=== PATIENT | female | born 1965 | race Caucasian/White ===

== ENCOUNTER 2020-02-15 20:01 | Inpatient (IN) | payer BC, SELFPAY ==
[2020-02-15 20:12] VITALS: BP 120/82; PULSE 86; RESP 17; TEMP 36.3; O2SAT 97; BMI 22.1
[2020-02-15 20:41] LABS: Basophils # 0.1 10^3/uL (0.0-0.1); Basophils % 0.4 %; Eosinophils # 0.2 10^3/uL (0.0-0.8); Eosinophils % 1.8 %; Hematocrit 44.3 % (37.0-47.0); Lymphocytes # 3.2 10^3/uL (0.8-4.8); Lymphocytes % 27.7 %; Mean Corpuscular HGB Conc 33.9 g/dL (30.0-36.0); Mean Corpuscular Hemoglobin 30.2 pg (28.0-34.0); Mean Corpuscular Volume 89.3 fL (81-99); Mean Platelet Volume 9.9 fL (7.4-10.4); Monocytes # 0.7 10^3/uL (0.2-0.9); Neutrophils # 7.3 10^3/uL (1.8-7.7); Neutrophils % 63.9 %; Nucleated Red Blood Cells % 0 %; Platelet Count 269 10^3/cmm (130-400); Red Blood Count 4.96 10^6/uL (4.1-5.3); Red Cell Distribution Width 12.2 % (12.1-15.1); White Blood Count 11.4 10^3/uL (4.0-10.0)
[2020-02-15 20:54] LABS: Alanine Aminotransferase 19 U/L (0-33); Albumin Level 4.8 g/dL (3.5-5.2); Alkaline Phosphatase 83 IU/L (35-105); Aspartate Amino Transferase 17 U/L (0-32); Blood Urea Nitrogen 23 mg/dL (6-20); Carbon Dioxide 25 mmol/L (22-29); Chloride 98 mmol/L (98-107); Globulin 3.2 g/dL (1.3-4.6); Glucose 148 mg/dL (65-115); Osmolality Calculated 283 mOsm/kg (285-295); Sodium 137 mmol/L (136-145); Total Bilirubin 0.5 mg/dL (0.15-1.2)
[2020-02-15 21:38] VITALS: BP 117/64; PULSE 77; TEMP 36.7; O2SAT 96
--- NOTE | 2020-02-15 21:46 | W.ED.ABDPA2 ---
HPI - Abdominal Pain General: Chief Complaint: Abdominal Pain Stated Complaint: abd pain Time Seen by Provider: 02/15/20 21:36 Source: patient Mode of arrival: ambulatory Limitations: no limitations History of Present Illness: HPI narrative: Hali is a 54-year-old female states she is abdominal pain today it is epigastric in nature. She had vomiting as well. States pain is very sharp and rates it an 8 out of 10. Denies any worsening or improving factors. MD elicited complaint: abdominal pain Pertinent past history: none Onset (ago): hour(s) Pain Consistency: constant Location: Epigastric Severity: severe Quality: sharp Radiation: none Migration to: no migration Exacerbating factors: nothing Relieving factors: nothing Associated Symptoms: Reports nausea and vomiting; Denies chills, diarrhea, dysuria and fever(s) Review of Systems Const: Denies: fever(s), chills, body aches or change in appetite Eyes: Denies: blurry vision or eye discomfort ENMT: Denies: throat pain or dental pain Card: Denies: chest pain Resp: Denies: dyspnea GI: Reports: abdominal pain, nausea and vomiting; Denies: diarrhea : Denies: dysuria Musc: Denies: neck pain or back pain Skin/Breast: Denies: rash Neuro: Denies: headache(s) Psych: Denies: depression Jules/Lymph: Denies: easy bruising All/Imm: Denies: urticaria PFSH ED PFSH: Medical History (Updated 02/15/20 @ 23:35 by Joyce Song MD) Dyslipidemia Hypertension Nicotine dependence Type 2 diabetes mellitus Surgical History (Updated 02/15/20 @ 23:32 by Joyce Song MD) H/O oophorectomy Family History (Updated 02/15/20 @ 23:32 by Joyce Song MD) Mother Cancer Colon cancer Social History (Updated 02/15/20 @ 23:32 by Joyce Song MD) Smoking and tobacco status: heavy tobacco smoker cigarettes [ Other cigarette details: [id number] smoking ] Alcohol intake: never Substance/Drug Use: never Household members: family Housing: House Physical Exam Const: COMMON NORMALS: no acute distress, patient oriented x3 and healthy appearing HENMT: COMMON NORMALS: normocephalic and atraumatic HEAD & SCALP: normocephalic and atraumatic Eye: COMMON NORMALS: Equal, round and reactive pupils present and EOMs intact bilaterally PUPIL: Yes Equal, round and reactive pupils present Neck/C-Spine: COMMON NORMALS: full ROM and supple Chest: COMMONS NORMALS: normal inspection of the chest and normal palpation of entire chest wall Resp: COMMON NORMALS: normal respiratory effort, No retractions, No use of accessory muscles and clear to auscultation bilaterally AUSCULTATION: clear to auscultation bilaterally Cardio: COMMON NORMALS: regular rate, regular rhythm and No murmurs present (Cardio) RATE: regular rate RHYTHM: regular rhythm GI: COMMON NORMALS: Normal to inspection, nondistended, normoactive bowel sounds present, Soft to palpation, non-tender and no masses PALPATION: Yes Soft to palpation Extremity: COMMON NORMALS: normal to inspection and full ROM Neuro: COMMON NORMALS: patient oriented x3, moves all extremities and no focal motor deficits Psych: COMMON NORMALS: mental status grossly normal, Normal thought process present and cooperative THOUGHT PROCESS: Normal thought process present Skin: COMMON NORMALS: no rashes or lesions noted and no wounds GENERAL SKIN EXAM: no rashes or lesions noted Course Vital Signs: Vital signs: Vital Signs Temperature 98.0 F 02/15/20 21:38 Pulse Rate 70 02/15/20 23:00 Respiratory Rate 17 02/15/20 23:00 Blood Pressure 114/70 02/15/20 23:00 Pulse Oximetry 98 02/15/20 23:00 MDM - Abdominal Pain MDM Narrative: Medical decision making narrative: Hali presents here with abdominal pain is found to have pancreatitis. Patient has no signs of gallstones. Patient is stable here and I spoke to hospitalist and will admit. Lab Data: Labs: Lab Results 02/15/20 02/15/20 02/15/20 Range/Units 20:33 20:33 20:33 WBC 11.4 H (4.0-10.0) 10^3/ uL RBC 4.96 (4.1-5.3) 10^6/u L Hgb 15.0 (11.5-15.3) g/dL Hct 44.3 (37.0-47.0) % MCV 89.3 (81-99) fL MCH 30.2 (28.0-34.0) pg MCHC 33.9 (30.0-36.0) g/dL RDW 12.2 (12.1-15.1) % Plt Count 269 (130-400) 10^3/c mm MPV 9.9 (7.4-10.4) fL Neut % (Auto) 63.9 % Lymph % (Auto) 27.7 % Phillips % (Auto) 6.0 % Eos % (Auto) 1.8 % Baso % (Auto) 0.4 % Neut # (Auto) 7.3 (1.8-7.7) 10^3/u L Lymph # (Auto) 3.2 (0.8-4.8) 10^3/u L Phillips # (Auto) 0.7 (0.2-0.9) 10^3/u L Eos # (Auto) 0.2 (0.0-0.8) 10^3/u L Baso # (Auto) 0.1 (0.0-0.1) 10^3/u L Nucleated RBC % (a uto) 0 % Nucleated RBCs # 0.0 /100WBC Sodium 137 (136-145) mmol/L Potassium 4.0 (3.5-5.1) mmol/L Chloride 98 (98-107) mmol/L Carbon Dioxide 25 (22-29) mmol/L Anion Gap 18.0 (5-19) BUN 23 H (6-20) mg/dL Creatinine 1.2 H (0.5-0.9) mg/dL GFR Calculation 47.0 L (90-130) mL/min Glucose 148 H (65-115) mg/dL Calculated Osmolal ity 283 L (285-295) mOsm/k g Calcium 10.0 (8.5-10.5) mg/dL Total Bilirubin 0.5 (0.15-1.2) mg/dL AST 17 (0-32) U/L ALT 19 (0-33) U/L Alkaline Phosphata se 83 (35-105) IU/L Total Protein 8.0 (6.6-8.7) g/dL Albumin 4.8 (3.5-5.2) g/dL Globulin 3.2 (1.3-4.6) g/dL Triglycerides 207 H (0-150) mg/dL Lipase 833 H (13-60) U/L Imaging Data ^: CT Abd/Pel: Radiologist's impression: [address] [place] [address] CT Scan Report Signed Patient: Hali Mosley Unit #: [id number] : 1965 Age/Sex: 54 / F ADM Date: 02/15/20 Loc: ER Room/Bed: Attending Dr: Ordering Provider/Ordering MD: Luz Scott MD Date of Service: 02/15/20 Procedure(s): CT abdomen pelvis w con* [id number] Accession Number(s): [id number] Report Number: [id number] PROCEDURE INFORMATION: Exam: CT Abdomen And Pelvis With Contrast Exam date and time: 02/15/2020 9:48 PM Age: 54 years old Clinical indication: Abdominal pain; Prior surgery; Surgery type: Ovary, fallopian tube TECHNIQUE: Imaging protocol: Computed tomography of the abdomen and pelvis with intravenous contrast. Radiation optimization: All CT scans at this facility use at least one of these dose optimization techniques: automated exposure control; mA and/or kV adjustment per patient size (includes targeted exams where dose is matched to clinical indication); or iterative reconstruction. Contrast material: VISI 320; Contrast volume: 75 ml; Contrast route: INTRAVENOUS (IV); COMPARISON: No relevant prior studies available. RADIATION DOSE METRICS: Total DLP (mGy-cm): 527.6 FINDINGS: Liver: There is no focal abnormality within the liver. Gallbladder and bile ducts: The gallbladder is normal. Pancreas: The tail of the pancreas is short, is probably a congenital finding. There is some mild haziness in the fat adjacent to the head of the pancreas which could represent mild pancreatitis. Correlation with clinical laboratory findings is suggested. Spleen: The spleen is normal. Adrenals: The adrenal glands are normal. The adrenal glands are normal. Kidneys and ureters: The kidneys are normal. Stomach and bowel: There is no evidence of colitis/diverticulitis. There is some mildly dilated fluid-filled loops of small bowel on the left side of the abdomen which could represent mild ileus. Appendix: A normal appendix is identified. Intraperitoneal space: Unremarkable. No free air. No significant fluid collection. Vasculature: The aorta demonstrates mild atherosclerotic calcification. Lymph nodes: Unremarkable. No enlarged lymph nodes. Bladder: Unremarkable as visualized. Reproductive: Unremarkable as visualized. Bones/joints: Unremarkable. No acute fracture. Soft tissues: Unremarkable. CT/CT abdomen pelvis w con* [id number] IMPRESSION: 1. Suspicious for mild pancreatitis, correlation with laboratory findings is suggested. 2. Possible mild ileus. Discharge Plan Discharge Patient Disposition: Admitted As Inpatient Clinical Impression: Pancreatitis Qualifiers: Chronicity: acute Pancreatitis type: unspecified pancreatitis type Acute pancreatitis complication: unspecified Qualified Code(s): K85.90 - Acute pancreatitis without necrosis or infection, unspecified Condition: Stable Referrals: Misael Guillen DO [Primary Care Provider] - Coding Level of Care Code ED Associate Automation Engineer for g Fwd Exam Comprehensive
[2020-02-15 21:54] LABS: Lipase 833 U/L (13-60)
[2020-02-15 22:11] VITALS: RESP 18; O2SAT 98
[2020-02-15] MEDS: HYDROmorphone 1 mg/mL INJ 1 mL IVP (22:11)
[2020-02-15] MEDS: ondansetron 2 mg/ML SDV 2 mL 4 MG IVP (22:11)
[2020-02-15] MEDS: sodium chloride 0.9% 1,000 ML 999 ML IV (22:14)
[2020-02-15] MEDS: iodixanol 320 mg/mL 100mL Btl IV (22:48)
[2020-02-15 22:56] VITALS: BP 114/57; PULSE 71; RESP 18; O2SAT 99
[2020-02-15 23:00] VITALS: BP 114/70; PULSE 70; RESP 17; O2SAT 98
[2020-02-15] MEDS: metoclopramide 5 mg/mL SDV 2 mL 10 MG IVP (23:08)
[2020-02-15] MEDS: diphenhydrAMINE 50 mg/mL SDV 1mL IVP (23:09)
--- NOTE | 2020-02-15 23:29 | PM.HP ---
Providers/Chief Complaint Primary Care Provider: Misael Guillen DO Chief Complaint: abd pain History of Present Illness Hali Mosley is a 54 year old female who carries history of type 2 diabetes and dyslipidemia came in with chief complaint abdominal pain. Patient is stating that her abdominal pain which she describes as burning started about 1 week ago after her dinner, it never subsided, she kept having nauseous feeling but never vomited until today, today she experienced 2 episodes of vomiting and decided to come to the ED for further evaluation. At home she did not notice any fever, chills, dysuria or diarrhea. She never had any episode of pancreatitis in the past. She is compliant with her medications and blood sugar has been within normal range at home. One thing she noticed which is different for her is low blood pressure for last 1 week. She has been able to eat and drink adequately but her blood pressure was running low in low 90s. At home she takes lisinopril 5 mg daily. No recent falls or syncopal events. Review of records revealed that in 2017 she had a stress test which was negative for coronary ischemia. Echo revealed normal ejection fraction. Diagnosis in the ER revealed hypotension systolic ranging between 88 to 90 mmHg, afebrile, mild leukocytosis, she received 1 L normal saline, I requested another bolus, CT abdomen reveals mild pancreatitis with ileus, lipase 833 Triglyceride 207 Creatinine 1.2 Review of Systems Const: Reports: chills, body aches, change in appetite and fatigue; Denies: fever(s) Eyes: Denies: change in vision ENMT: Denies: throat pain Card: Denies: chest pain Resp: Denies: dyspnea GI: Reports: abdominal pain, nausea, vomiting and heartburn; Denies: diarrhea or constipation : Denies: flank pain or difficulty voiding Musc: Denies: neck pain Skin/Breast: Denies: rash or pruritus Neuro: Denies: headache(s) Psych: Denies: anxiety Endo: Denies: polyuria Jules/Lymph: Denies: easy bruising All/Imm: Denies: urticaria Medications/Allergies Home Medications Medication Instructions Recorded Confirmed Last Taken Type Neurontin See Rx Instructions .ROUTE .COMPLEX 02/15/20 02/15/20 Unknown History empagliflozin [Jardiance] 10 mg PO DAILY 02/15/20 02/15/20 02/15/20 History fluoxetine [Prozac] 40 mg PO DAILY 02/15/20 02/15/20 02/15/20 History insulin degludec [Tresiba 25 unit SUBCUT BID 02/15/20 02/15/20 02/15/20 History FlexTouch U-100] lisinopril 5 mg PO DAILY 02/15/20 02/15/20 02/15/20 History semaglutide [Ozempic] 1 mg SUBCUT DAILY 02/15/20 02/15/20 02/15/20 History Allergies Allergy/AdvReac Type Severity Reaction Status Date / Time codeine Allergy Unknown Verified 02/15/20 21:47 Penicillins Allergy ALGY-Swell Verified 02/15/20 21:47 Lip/Tongue/Throat PFSH Acute PFSH: Medical History Dyslipidemia Hypertension Nicotine dependence Type 2 diabetes mellitus Surgical History H/O oophorectomy Family History Mother Cancer Colon cancer Social History Smoking and tobacco status: heavy tobacco smoker cigarettes [ Other cigarette details: 80-[id number]-hlbh smoking ] Alcohol intake: never Substance/Drug Use: never Household members: family Housing: House Vitals/I&O/Wt Last Vital Signs Temp 98.0 F 02/15/20 21:38 Pulse 70 02/15/20 23:00 Resp 17 02/15/20 23:00 BP 114/70 02/15/20 23:00 Pulse Ox 98 02/15/20 23:00 Weight last 48 hrs Weight 54.885 kg Physical Exam Narrative: EXAM NARRATIVE: Head to toe examination Well-built well-hydrated female S1, S2 no tachycardia Abdomen soft, mild tenderness on deep palpation around mid epigastric region otherwise no signs of retroperitoneal hemorrhage Lungs are clear to auscultation without adventitious sounds Systolic blood pressure ranging between 88 to 90 mm artery Awake alert oriented x3 GCS 15 No neurological deficit No facial asymmetry Skin does not show any sign ischemia getting ulcer Skin tattoos Data : 02/15/20 20:33 02/15/20 20:33 A&P Assessment and plan (1) Pancreatitis: Status: Acute Qualifiers: Acute pancreatitis complication: unspecified Chronicity: acute Pancreatitis type: unspecified pancreatitis type Qualified Code(s): K85.90 - Acute pancreatitis without necrosis or infection, unspecified (2) SCOTTY (acute kidney injury): Status: Acute (3) Ileus: Status: Acute (4) Nicotine dependence: Status: Acute Additional A&P Information Subacute episode of pancreatitis I believe etiology is nicotine dependence and GLP-1 analog that she is using for type 2 diabetes No gallstones No CBD dilation Lipase 833 Triglyceride 207 No previous history of pancreatitis N.p.o. Ringer lactate at 75 mL/h after giving second bolus Analgesia with Dilaudid Acute kidney injury due to dehydration Anticipating improvement with fluid resuscitation Patient is denying dysuria Hold lisinopril Type 2 diabetes: We will check A1c level, Hold insulin for now as she will be n.p.o Nicotine dependence: Patient counseled on smoking cessation and benefits for her health. Full code DVT prophylaxis heparin N.p.o. GI prophylaxis Protonix IV Attestations Medical Necessity Statement*: Anticipating stay in the hospital to cross more than 2 midnights currently need bowel rest and IV fluids agitation for pancreatitis and hypotension, also has evidence of ileus on CT abdomen Her clinical progress will decide her length of stay Time Spent in Patient Care: (>than 50% of time spent in counselling and/or direct pt care on unit). 45mins Coding Level of Care Code Acute Sales Property Manager for Neda Wyatt Diagnoses Pancreatitis K85.90 Acute pancreatitis complication: unspecified Chronicity: acute Pancreatitis type: unspecified pancreatitis type SCOTTY (acute kidney injury) N17.9 Ileus K56.7 Nicotine dependence F17.200
[2020-02-15 23:40] LABS: Triglycerides 207 mg/dL (0-150)
[2020-02-16] VITALS (15 sets, daily range): BP systolic 82–126; BP diastolic 46–74; PULSE 58–103; RESP 16–20; TEMP 36.5–37.1; O2SAT 91–99
--- NOTE | 2020-02-16 00:12 | PC.NURSE ---
Daughter Michelle cell # [phone]
[2020-02-16 01:13] LABS: Glucose Urine UA 4+ (Normal); Ketones Urine Negative (Negative); Protein Urine Neg (Negative); Urine Appearance Clear (CLEAR); Urine Color Yellow (Yellow); pH Urine 6 (5-7)
[2020-02-16 01:14] LABS: Add Urine Microscopic? YES; Bacteria Urine TRACE; Bilirubin Urine Neg (NEGATIVE); Blood Urine 2+ (Negative); Leukocyte Esterase Urine Negative (Negative); Nitrate Urine Negative (Negative); RBC Urine 0-4 /hpf (0-2); Squamous Epithelial Cell Urine 0-4 (0-5); Urobilinogen Urine Norm (Negative); WBC Urine 0-4 /hpf (0-5)
[2020-02-16] MEDS: heparin 5,000 unit/mL INJ 1 mL 5000 UNIT SUBCUT ×3 (01:22→17:45)
[2020-02-16] MEDS: sodium chloride 0.9% 1,000 ML 999 ML IV ×2 (01:22→02:40)
[2020-02-16] MEDS: lactated ringers 1,000 ML 75 ML IV ×2 (02:24→13:13)
[2020-02-16] MEDS: midodrine 5 mg TABLET 10 MG PO ×4 (02:39→21:16)
[2020-02-16 05:04] LABS: Basophils % 0.4 %; Eosinophils # 0.2 10^3/uL (0.0-0.8); Eosinophils % 2.2 %; Hematocrit 40.1 % (37.0-47.0); Hemoglobin 13.2 g/dL (11.5-15.3); Lymphocytes # 3.4 10^3/uL (0.8-4.8); Lymphocytes % 37.3 %; Mean Corpuscular HGB Conc 32.9 g/dL (30.0-36.0); Mean Corpuscular Hemoglobin 30.7 pg (28.0-34.0); Mean Corpuscular Volume 93.3 fL (81-99); Monocytes # 0.5 10^3/uL (0.2-0.9); Monocytes % 5.5 %; Neutrophils % 54.4 %; Nucleated Red Blood Cells % 0 %; Platelet Count 214 10^3/cmm (130-400); Red Cell Distribution Width 12.5 % (12.1-15.1); White Blood Count 9.1 10^3/uL (4.0-10.0)
[2020-02-16 05:11] LABS: Lactate (Lactic Acid level) 0.6 mmol/L (0.5-2.2)
[2020-02-16] MEDS: ketorolac 30 mg/mL INJ 15 MG IVP (05:25)
[2020-02-16 05:34] LABS: Alanine Aminotransferase 15 U/L (0-33); Albumin Level 3.4 g/dL (3.5-5.2); Alkaline Phosphatase 68 IU/L (35-105); Anion Gap 13.9 (5-19); Aspartate Amino Transferase 14 U/L (0-32); Blood Urea Nitrogen 21 mg/dL (6-20); Carbon Dioxide 24 mmol/L (22-29); Chloride 106 mmol/L (98-107); Globulin 2.9 g/dL (1.3-4.6); Glomerular Filtration Rate 65.5 mL/min (90-130); Glucose 99 mg/dL (65-115); Osmolality Calculated 287 mOsm/kg (285-295); Potassium 3.9 mmol/L (3.5-5.1); Sodium 140 mmol/L (136-145); Total Bilirubin 0.3 mg/dL (0.15-1.2); Total Protein 6.3 g/dL (6.6-8.7)
[2020-02-16 05:53] LABS: Lipase 820 U/L (13-60)
[2020-02-16 06:09] LABS: Glucose Point of Care 96 mg/dL (70-110)
--- NOTE | 2020-02-16 10:34 | PC.CHAP ---
Pastoral Care Encounter/Spiritual Assessment Type of Contact [] Declined dental assistant medical assistant visit [] Patient/Family/Request visit [] Outpatient visit [] Follow-up visit [] Physician referral [] Code/Alert [x] Routine visit [] Staff referral [] Actively dying [] Patient sleeping [] Family support [] [] Out of room [] Palliative care [] [] Receiving care in room [] Pre-surgical visit [] Trauma [] Long length of stay [] ICU visit [] Other: Relational/Emotional Strength [x] Patient feels connected with others/family/visitors/staff [] Distress [] Loneliness/isolation [] Abandonment Spirituality of Patient [x] Person of Sumi [x] Attends Jewish of their Sumi [x] Believes in Prayer [] Reads Bible or Moravian materials [] There are Spiritual issues to be addressed Professor Of Visual Arts Interventions [x] Prayer [x] Active listening [x] Non-anxious presence [x] Spiritual/emotional support [] Crisis/trauma care [] Spiritual counseling [] Bereavement support [] Provided bereavement packet [] Provided Bible/devotional materials [] Provided toy/stuffed animal, coloring book to patient or family member [] Provided Communion [] Anointing/[place] [] Salvation [x] Completed spiritual assessment [] Other: Impact on Illness or Injury [] Angry [] Fearful [] Anxious [] Often cries [] Exhaustion [] Unable to work [] Unable to attend latter day [] Unable to walk/stand [] Unable to read [] Unable to drive [] Unable to eat/drink [] Unable to sleep [] Unable to be with family [] Patient intubated [x] Other: Summary Patient is a practicing Yazidi Time spent with patient 5 minutes
[2020-02-16 11:27] LABS: Glucose Point of Care 96 mg/dL (70-110)
--- NOTE | 2020-02-16 12:21 | P.PN_ITS ---
Subjective Subjective: Interval history: Chart reviewed, resolved leukocytosis, hemodynamically stable, afebrile, remains NPO and on IVF. No pain meds so far this AM. Resting comfortably in bed, very pleasant, states that she is hungry and would like something to eat, pain well controlled with current pain regimen. Medications: Reviewed: Yes Medication Review Details: Active Medications Generic Name Dose Route Start Last Admin Trade Name Freq PRN Reason Stop Dose Admin Heparin Sodium (Be ef Lung) 5,000 unit 02/16/20 00:54 02/16/20 08:28 Heparin SUBCUT 5,000 unit Q8H ALOK Administration Hydromorphone HCl 1 mg 02/16/20 00:54 Dilaudid Inj IVP Q4H PRN Moderate pain Lactated Ringer's 1,000 mls @ 100 m ls/hr 02/16/20 00:54 02/16/20 02:24 Lactated Ringers IV 75 mls/hr .Q10H ALOK Administration Midodrine 10 mg 02/16/20 02:32 02/16/20 08:27 Proamatine PO 10 mg TID ALOK Administration codeine Allergy (Verified 02/15/20 21:47) Unknown Penicillins Allergy (Verified 02/15/20 21:47) ALGY-Swell Lip/Tongue/Throat Vitals/I&O/Wt Last Vital Signs Temp 98.0 F 02/16/20 12:00 Pulse 58 L 02/16/20 12:00 Resp 16 02/16/20 12:00 BP 126/70 02/16/20 12:00 Pulse Ox 97 02/16/20 12:00 02/15/20 02/16/20 02/16/20 22:59 06:59 14:59 Intake Total 3000 / 3000 Balance 3000 / 3000 Weight last 48 hrs Weight 54.885 kg Physical Exam Const: COMMON NORMALS: no acute distress and patient oriented x3 GENERAL APPEARANCE: cooperative and comfortable ORIENTATION/CONSCIOUSNESS: Yes awake HENMT: COMMON NORMALS: normocephalic, atraumatic, hearing grossly normal bilaterally and moist oral mucous membranes HEAD & SCALP: normocephalic and atraumatic Eye: COMMON NORMALS: Equal, round and reactive pupils present, EOMs intact bilaterally and conjunctivae normal CONJUNCTIVA: Yes conjunctivae normal PUPIL: Yes Equal, round and reactive pupils present Neck/C-Spine: COMMON NORMALS: full ROM GENERAL: Yes normal visual inspection and Yes trachea midline Resp: COMMON NORMALS: normal respiratory effort, No retractions, No use of accessory muscles and clear to auscultation bilaterally EFFORT & INSPECTION: Yes able to speak in complete sentences, Yes symmetric chest movement and No tachypneic AUSCULTATION: clear to auscultation bilaterally Cardio: COMMON NORMALS: regular rate, regular rhythm, S1 normal heart sound present, S2 normal heart sound present and No murmurs present (Cardio) RATE: regular rate RHYTHM: regular rhythm HEART SOUNDS: S1 normal heart sound present and S2 normal heart sound present GI: COMMON NORMALS: Normal to inspection, nondistended, normoactive bowel sounds present and Soft to palpation PALPATION: Yes Soft to palpation and Yes Tenderness to palpation present (GI) (Minimal, diffuse) Extremity: COMMON NORMALS: normal to inspection, full ROM and no clubbing, cyanosis or edema; negative for no pedal edema Neuro: COMMON NORMALS: patient oriented x3, moves all extremities, no focal motor deficits, no sensory deficits noted and gait normal Psych: COMMON NORMALS: mental status grossly normal, Normal thought process present, cooperative, normal affect and speech normal SPEECH: Yes normal speech THOUGHT PROCESS: Normal thought process present Skin: COMMON NORMALS: no rashes or lesions noted, no jaundice, no petechiae and no mottling GENERAL SKIN EXAM: no rashes or lesions noted Data : 02/16/20 04:26 02/16/20 04:26 A&P Assessment and plan (1) Pancreatitis: -no prior episodes -mild per labs and imaging -suspicion for medication induced effect; [id number], no hx of EtOH abuse, imaging otherwise negative for GB pathology; meds on hold -trend lipase -pain control, IVF hydration, antiemetics as needed -NPO currently, will start on GI soft diet per her request Status: Acute Qualifiers: Acute pancreatitis complication: unspecified Chronicity: acute Pancreatitis type: unspecified pancreatitis type Qualified Code(s): K85.90 - Acute pancreatitis without necrosis or infection, unspecified (2) Ileus: -per imaging -management as noted above Status: Acute (3) SCOTTY (acute kidney injury): -Cr normalized with IVF hydration -avoid nephrotoxins -ACEi on hold Status: Resolved (4) Dyslipidemia: Status: Chronic (5) Hypertension: -VSS; continue to monitor -on Midodrine -negative cardiac workup in 2017 including stress test, Echo Status: Chronic Qualifiers: Hypertension type: essential hypertension Qualified Code(s): I10 - Essential (primary) hypertension (6) Nicotine dependence: Status: Acute Qualifiers: Nicotine product type: cigarettes Substance use status: uncomplicated Qualified Code(s): F17.210 - Nicotine dependence, cigarettes, uncomplicated Additional A&P Information -GI ppx with PPI -DVT ppx with heparin -Dispo: home -Code status: FULL code Attestations Medical Necessity Statement*: Patient requires hospitalization for continued management of acute mild pancreatitis, on IV fluid hydration, bowel rest, requiring continued pain control. Time Spent in Patient Care: Greater than 35 minutes (>than 50% of time spent in counselling and/or direct pt care on unit) . Coding Level of Care Code Acute Guide Excursion for [facility] Fwd Exam Comprehensive Diagnoses Pancreatitis K85.90 Acute pancreatitis complication: unspecified Chronicity: acute Pancreatitis type: unspecified pancreatitis type Ileus K56.7 SCOTTY (acute kidney injury) N17.9 Dyslipidemia E78.5 Hypertension I10 Hypertension type: essential hypertension Nicotine dependence F17.210 Nicotine product type: cigarettes Substance use status: uncomplicated
[2020-02-16] MEDS: HYDROmorphone 1 mg/mL INJ 1 mL IVP (13:20)
[2020-02-17] MEDS: heparin 5,000 unit/mL INJ 1 mL 5000 UNIT SUBCUT ×2 (02:09→09:03)
[2020-02-17] MEDS: lactated ringers 1,000 ML 75 ML IV ×2 (02:09→13:07)
[2020-02-17 03:00] VITALS: BP 109/68; PULSE 64; RESP 22; TEMP 36.3; O2SAT 96
[2020-02-17 06:41] LABS: Estmated Average Glucose 183
[2020-02-17 06:42] LABS: Lipase 184 U/L (13-60)
[2020-02-17 07:00] VITALS: BP 110/72; PULSE 66; RESP 16; TEMP 37; O2SAT 98
[2020-02-17] MEDS: midodrine 5 mg TABLET 10 MG PO (09:03)
[2020-02-17 11:00] VITALS: BP 114/71; PULSE 67; RESP 16; TEMP 37.1; O2SAT 98
--- NOTE | 2020-02-17 13:25 | P.DS_ITS ---
Discharge Providers Date of Admission: 02/15/20 23:15 Date of Discharge: February 17, 2020 Attending Provider at Admission: Joyce Song MD Attending Provider at Discharge: Francisca Villagomez MD Primary Care Provider: Misael Guillen DO Diagnoses at Discharge Discharge Diagnosis (1) Pancreatitis: Status: Acute Problem details: -no prior episodes -mild per labs and imaging -suspicion for medication induced effect; [id number], no hx of EtOH abuse, imaging otherwise negative for GB pathology; meds on hold -significant decrease in lipase today -pain control, IVF hydration, antiemetics as needed; no pain meds required overnight -tolerating GI soft diet Qualifiers: Acute pancreatitis complication: unspecified Chronicity: acute Pancreatitis type: unspecified pancreatitis type Qualified Code(s): K85.90 - Acute pancreatitis without necrosis or infection, unspecified (2) Ileus: Status: Resolved Problem details: -per imaging -management as noted above (3) SCOTTY (acute kidney injury): Status: Resolved Problem details: -Cr normalized with IVF hydration -avoid nephrotoxins -ACEi on hold (4) Dyslipidemia: Status: Chronic (5) Hypertension: Status: Chronic Problem details: -VSS; continue to monitor -on Midodrine; per patient has not had issues with hypotension in the past; suspect that this was due to dehydration. Will not continue midodrine, counseled on need to monitor BP at home particularly if symptomatic (dizziness/lightheadedness, chest pain, SOB, syncope) -negative cardiac workup in 2017 including stress test, Echo Qualifiers: Hypertension type: essential hypertension Qualified Code(s): I10 - Essential (primary) hypertension (6) Nicotine dependence: Status: Acute Qualifiers: Nicotine product type: cigarettes Substance use status: uncomplicated Qualified Code(s): F17.210 - Nicotine dependence, cigarettes, uncomplicated Reason for Visit Reason for Visit: abd pain Hospital Course Hospital Course: Patient was admitted to the medical surgical floor and started on IV fluid hydration, pain control and antiemetics as needed secondary to findings consistent with pancreatitis. She recovered fairly quickly and diet was introduced and advanced as tolerated with no noted increase in her symptoms particularly in terms of abdominal pain, nausea or vomiting. She has done well overnight with no pain medication required. She is hemodynamically stable, has been afebrile, on room air, ambulatory, voiding without difficulty. We have discussed need for continued monitoring of her blood sugar, potential that this episode was induced by her medication regimen which may need to be reviewed with her primary care provider, need to seek medical attention immediately should her symptoms worsen, need to monitor blood pressure if she is feeling short of breath, lightheaded or dizzy. She will need to follow-up with her primary care provider within 1 week. Discharge Summary: -Patient to follow-up with her primary care provider within 1 week Physical Exam Const: COMMON NORMALS: no acute distress and patient oriented x3 GENERAL A PPEARANCE: cooperative and comfortable ORIENTATION/CONSCIOUSNESS: Yes awake HENMT: COMMON NORMALS: normocephalic, atraumatic, hearing grossly normal bilaterally and moist oral mucous membranes HEAD & SCALP: normocephalic and atraumatic Eye: COMMON NORMALS: Equal, round and reactive pupils present, EOMs intact bilaterally and conjunctivae normal CONJUNCTIVA: Yes conjunctivae normal PUPIL: Yes Equal, round and reactive pupils present Neck/C-Spine: COMMON NORMALS: full ROM GENERAL: Yes normal visual inspection and Yes trachea midline Resp: COMMON NORMALS: normal respiratory effort, No retractions, No use of accessory muscles and clear to auscultation bilaterally EFFORT & INSPECTION: Yes able to speak in complete sentences, Yes symmetric chest movement and No tachypneic AUSCULTATION: clear to auscultation bilaterally Cardio: COMMON NORMALS: regular rate, regular rhythm, S1 normal heart sound present, S2 normal heart sound present and No murmurs present (Cardio) RATE: regular rate RHYTHM: regular rhythm HEART SOUNDS: S1 normal heart sound present and S2 normal heart sound present GI: COMMON NORMALS: Normal to inspection, nondistended, normoactive bowel sounds present and Soft to palpation PALPATION: Yes Soft to palpation and Yes Tenderness to palpation present (GI) (Minimal, diffuse) Extremity: COMMON NORMALS: normal to inspection, full ROM and no clubbing, cyanosis or edema; negative for no pedal edema Neuro: COMMON NORMALS: patient oriented x3, moves all extremities, no focal motor deficits, no sensory deficits noted and gait normal Psych: COMMON NORMALS: mental status grossly normal, Normal thought process present, cooperative, normal affect and speech normal SPEECH: Yes normal speech THOUGHT PROCESS: Normal thought process present Skin: COMMON NORMALS: no rashes or lesions noted, no jaundice, no petechiae and no mottling GENERAL SKIN EXAM: no rashes or lesions noted Discharge Data Data Completed and Pending: Completed Studies During Hospitalization Category Date Time Status CT abdomen pelvis w con* [id number] Urge nt Cat Scan 02/15/20 21:45 Completed Pending at discharge Category Date Time Status Lipase AM LABS Lab 02/18/20 04:00 Ordered Labs from last 24 hours 02/17/20 02/17/20 06:00 06:00 Estimat Average Gl ucose 183 Hemoglobin A1c 8.0 H Lipase 184 H Vitals: Last Vital Signs Temp 98.7 F 02/17/20 11:00 Pulse 67 02/17/20 11:00 Resp 16 02/17/20 11:00 BP 114/71 02/17/20 11:00 Pulse Ox 98 02/17/20 11:00 Discharge Plan Discharge Patient Disposition: Home, Self-Care Condition: Stable Prescriptions: Continued Prozac 40 mg Capsule 40 mg PO DAILY RF: 0 lisinopril 5 mg Tablet 5 mg PO DAILY RF: 0 Tresiba FlexTouch U-100 100 unit/mL (3 mL) insulin pen 25 unit SUBCUT BID RF: 0 Jardiance 10 mg Tablet 10 mg PO DAILY RF: 0 Ozempic 0.25 mg or 0.5 mg(2 mg/1.5 mL) pen injector 1 mg SUBCUT DAILY RF: 0 Neurontin See Rx Instructions .ROUTE .COMPLEX RF: 0 Discharge Orders: Discharge Order (Routine); Ordered 02/17/20 Ordered By: Francisca Villagomez Referrals: Misael Guillen DO [Primary Care Provider] - 4-7 days (Post hospital discharge follow up. Treated for mild pancreatitis, suspicion that this is medication induced based on her diabetes meds regimen. ) Discharge Diet: Diabetic Discharge Activity: Increase activity as tolerated Discharge Attestations Time Spent in Discharge Care*: greater than 30 min Specific Discharge Activities: Specific discharge activities: educating patient, discussing with continuous pillowcase cutter/social workers/dc planners, documenting/other paperwork and evaluating patient/reviewing data Status at Discharge: Cognitive status at discharge: cognitively intact , Behavioral status at discharge: cooperative , Functional status at discharge: independent ambulation Overall status at discharge: patient is progressing back to baseline Quality Metrics Clinical Quality Measures During this hospital stay, did patient experience: None Coding Level of Care Code Acute [employer] for Neda Wyatt Diagnoses Pancreatitis K85.90 Acute pancreatitis complication: unspecified Chronicity: acute Pancreatitis type: unspecified pancreatitis type Ileus K56.7 SCOTTY (acute kidney injury) N17.9 Dyslipidemia E78.5 Hypertension I10 Hypertension type: essential hypertension Nicotine dependence F17.210 Nicotine product type: cigarettes Substance use status: uncomplicated
[2020-02-17 14:40] VITALS: BP 114/71; PULSE 67; RESP 16; TEMP 37.1; O2SAT 98
[2020-02-17 16:37] VITALS: BP 114/71; PULSE 67; RESP 16; TEMP 37.1; O2SAT 98
== END 2020-02-17 14:30 | disposition home or self-care (01) | DRG 439 ==
LOC: ER 23:16 → MEDSURG 02-16 00:14
PROVIDERS: Emergency Medicine; Physician Assistant; Admitting Provider Internal Medicine; PCP Internal Medicine; Visit Provider Family Medicine
DX: K85.90 Acute pancreatitis without necrosis or infection, unspecified (principal); K56.7 Ileus, unspecified; N17.9 Acute kidney failure, unspecified; E11.9 Type 2 diabetes mellitus without complications; E78.5 Hyperlipidemia, unspecified; I95.9 Hypotension, unspecified; I10 Essential (primary) hypertension; F17.210 Nicotine dependence, cigarettes, uncomplicated; E86.0 Dehydration
CPT/HCPCS: 12345; 36415; 36416; 74177; 80053; 81001; 82962; 83036; 83605; 83690; 84478; 85025; 96372; 96375; 99283; J1170; J1200; J1644; J1885; J2405; J2765; J7030; Q9967

== ENCOUNTER → 2020-07-04 13:53 | Outpatient (BNVA) | payer BC, SELFPAY | PROVIDERS: PCP Internal Medicine; Referring Provider Nurse Practitioner Family; Visit Provider Internal Medicine | DX: E11.40 Type 2 diabetes mellitus with diabetic neuropathy, unspecified (principal); E11.65 Type 2 diabetes mellitus with hyperglycemia; E78.1 Pure hyperglyceridemia; Z87.19 Personal history of other diseases of the digestive system | CPT/HCPCS: 99204 ==

== ENCOUNTER 2020-08-15 11:10 | Outpatient (CLI) | payer BC, SELFPAY ==
--- NOTE | 2020-08-15 11:18 | MM_ITS ---
WS: [id number] BILATERAL SCREENING DIGITAL MAMMOGRAM WITH CAD HISTORY: SCREENING COMPARISON: None available. Bilateral CC and MLO views submitted. Computer aided detection analyzed. Breast composition: The breasts are heterogeneously dense, which may obscure small masses. No suspici ous masses, microcalcifications or architectural distortion. MM/[place] [id number] IMPRESSION: BI-RADS: 1-Negative FOLLOW UP: 1 Year Follow-up
== END 2020-08-15 11:11 | disposition home or self-care (01) ==
LOC: RADSHAW 11:13
PROVIDERS: PCP Nurse Practitioner Family; Visit Provider Nurse Practitioner Family
DX: Z12.31 Encounter for screening mammogram for malignant neoplasm of breast (principal)
CPT/HCPCS: 77067

== ENCOUNTER → 2021-02-26 14:23 | Outpatient (BNVA) | payer BC, SELFPAY | PROVIDERS: PCP Family Medicine; Visit Provider Family Medicine | DX: E11.65 Type 2 diabetes mellitus with hyperglycemia (principal); E11.40 Type 2 diabetes mellitus with diabetic neuropathy, unspecified; E78.1 Pure hyperglyceridemia | CPT/HCPCS: 80053; 82043; 83036 ==

== ENCOUNTER → 2021-06-25 08:36 | Outpatient (BNVA) | payer BC, SELFPAY | PROVIDERS: PCP Family Medicine; Visit Provider Internal Medicine | DX: E11.65 Type 2 diabetes mellitus with hyperglycemia (principal); E11.40 Type 2 diabetes mellitus with diabetic neuropathy, unspecified; E78.1 Pure hyperglyceridemia; Z87.19 Personal history of other diseases of the digestive system; Z79.4 Long term (current) use of insulin; F17.210 Nicotine dependence, cigarettes, uncomplicated | CPT/HCPCS: 99214 ==

== ENCOUNTER 2021-06-25 09:16 | Outpatient (CLI) | payer BC, SELFPAY ==
[2021-06-25 09:57] LABS: Estmated Average Glucose 249; Hemoglobin A1C 10.3 % (4.0-6.0)
[2021-06-25 10:03] LABS: Alanine Aminotransferase 30 U/L (0-33); Albumin Level 4.3 g/dL (3.5-5.2); Alkaline Phosphatase 89 IU/L (35-105); Aspartate Amino Transferase 18 U/L (0-32); Blood Urea Nitrogen 19 mg/dL (6-20); Calcium 9.4 mg/dL (8.5-10.5); Carbon Dioxide 20 mmol/L (22-29); Chloride 103 mmol/L (98-107); Chol HDL Ratio 5.74 mg/dL (0.0-4.40); Cholesterol 155 mg/dL (0-200); Glomerular Filtration Rate 65.2 mL/min (90-130); Glucose 151 mg/dL (65-115); HDL Cholesterol 27 mg/dL (60-100); LDL Cholesterol Calculated 62 mg/dL (50-129); Osmolality Calculated 289 mOsm/kg (285-295); Sodium 137 mmol/L (136-145); Total Bilirubin 0.6 mg/dL (0.15-1.2); Total Protein 7.3 g/dL (6.6-8.7); Triglycerides 330 mg/dL (0-150)
== END 2021-06-25 09:17 | disposition home or self-care (01) ==
LOC: LAB 09:21
PROVIDERS: PCP Family Medicine; Visit Provider Internal Medicine
DX: E11.65 Type 2 diabetes mellitus with hyperglycemia (principal); E78.1 Pure hyperglyceridemia
CPT/HCPCS: 36415; 80053; 80061; 83036

== ENCOUNTER → 2022-02-26 10:00 | Outpatient (BNVA) | payer BC, SELFPAY | PROVIDERS: PCP Family Medicine; Visit Provider Internal Medicine | DX: R60.0 Localized edema (principal); E78.1 Pure hyperglyceridemia; E11.65 Type 2 diabetes mellitus with hyperglycemia | CPT/HCPCS: 80053; 80061; 83036 ==

== ENCOUNTER 2022-05-19 12:13 | Outpatient (CLI) | payer BC, SELFPAY ==
[2022-05-19 13:11] LABS: Alanine Aminotransferase 68 U/L (0-33); Albumin Level 4.3 g/dL (3.5-5.2); Alkaline Phosphatase 72 U/L (35-105); Anion Gap 16.6 (5-19); Aspartate Amino Transferase 41 U/L (0-32); Blood Urea Nitrogen 25 mg/dL (6-20); Calcium 9.2 mg/dL (8.5-10.5); Carbon Dioxide 25 mmol/L (22-29); Chloride 99 mmol/L (98-107); Globulin 3.1 g/dL (1.3-4.6); Glomerular Filtration Rate 46.6 mL/min (90-130); Glucose 235 mg/dL (65-115); Osmolality Calculated 296 mOsm/kg (285-295); Potassium 3.6 mmol/L (3.5-5.1); Sodium 137 mmol/L (136-145); Total Bilirubin 0.7 mg/dL (0.15-1.2); Total Protein 7.4 g/dL (6.6-8.7)
[2022-05-19 13:18] LABS: Estmated Average Glucose 186; Hemoglobin A1C 8.1 % (4.0-6.0)
== END 2022-05-19 12:14 | disposition home or self-care (01) ==
LOC: LAB 12:15
PROVIDERS: PCP Family Medicine; Visit Provider Internal Medicine
DX: E11.65 Type 2 diabetes mellitus with hyperglycemia (principal); E78.1 Pure hyperglyceridemia
CPT/HCPCS: 80053; 83036

== ENCOUNTER 2022-07-01 08:34 | Outpatient (CLI) | payer BC, SELFPAY ==
--- NOTE | 2022-07-01 08:42 | MM_ITS ---
WS: [id number] Bilateral screening 3D tomosynthesis digital mammogram, 07/01/2022 Clinical Data: screening mammogram Comparison: 08/15/2020. Findings: The breast parenchymal pattern shows heterogeneous density. No spiculated masses or clustered calcifi cations are seen. There are no secondary signs of carcinoma. MM/[place] [id number] Impression: 1. Negative bilateral mammogram unchanged. 2. Recommend annual screening mammograms. BIRADS: 1-Negative FOLLOW UP: 1 Year Follow-up The CAD gas and oil checker was used.
== END 2022-07-01 08:35 | disposition home or self-care (01) ==
LOC: RAD 08:34
PROVIDERS: PCP Family Medicine; Visit Provider Family Medicine
DX: Z12.31 Encounter for screening mammogram for malignant neoplasm of breast (principal)
CPT/HCPCS: 77063; 77067

== ENCOUNTER 2022-08-19 07:49 | Outpatient (CLI) | payer BC, SELFPAY ==
--- NOTE | 2022-08-19 08:00 | US_ITS ---
WS: [id number] RIGHT UPPER QUADRANT ULTRASOUND HISTORY: transaminitis COMPARISON: None available. Liver: 15.1 cm in length. Normal size liver with mild heterogeneity. Most likely due to mild hepatic steatosis. No mass or bile duct dilatation. Portal Vein: Normal hepatopetal flow with monophasic waveform. Gallbladder: Normally distended gallbladder with no stones or wall thickening. CBD: 0.3 cm Pancreas: Normal size and echogenicity. Right kidney: 9.9 cm in length. Normal size and echogenicity. No hydronephrosis or mass. Aorta and IVC: Unremarkable abdominal aorta and IVC. No ascites. US/US liver [id number] IMPRESSION: 1. Normal gallbladder. 2. Very minimal hepatic steatosis.
== END 2022-08-19 07:50 | disposition home or self-care (01) ==
PROVIDERS: PCP Family Medicine; Visit Provider Family Medicine
DX: R74.01 Elevation of levels of liver transaminase levels (principal)
CPT/HCPCS: 76705

== ENCOUNTER 2022-10-09 07:50 | Outpatient (CLI) | payer BC, SELFPAY ==
[2022-10-09 08:59] LABS: Alanine Aminotransferase 80 U/L (0-33); Albumin Level 4.6 g/dL (3.5-5.2); Alkaline Phosphatase 88 U/L (35-105); Aspartate Amino Transferase 51 U/L (0-32); Blood Urea Nitrogen 19 mg/dL (6-20); Calcium 9.4 mg/dL (8.5-10.5); Carbon Dioxide 22 mmol/L (22-29); Chloride 102 mmol/L (98-107); Chol HDL Ratio 5.16 mg/dL (0.0-4.40); Cholesterol 191 mg/dL (0-200); Globulin 3.1 g/dL (1.3-4.6); Glomerular Filtration Rate 57.4 mL/min (90-130); Glucose 218 mg/dL (65-115); HDL Cholesterol 37 mg/dL (60-100); LDL Cholesterol Calculated 104 mg/dL (50-129); LDL HDL Ratio 2.81 RATIO (0.00-3.22); Osmolality Calculated 295 mOsm/kg (285-295); Sodium 138 mmol/L (136-145); Total Protein 7.7 g/dL (6.6-8.7); Triglycerides 252 mg/dL (0-150)
[2022-10-09 09:21] LABS: Creatinine Urine, Random 217 mg/dL (28-217)
[2022-10-09 09:30] LABS: Estmated Average Glucose 174; Hemoglobin A1C 7.7 % (4.0-6.0)
[2022-10-09 09:32] LABS: Microalbumin Random Urine 96 ug/dL (0-20)
[2022-10-09 09:33] LABS: Microalbum Creatinine Ratio Ur 442 mg/dL (0-20)
== END 2022-10-09 07:51 | disposition home or self-care (01) ==
LOC: LAB 07:54
PROVIDERS: PCP Family Medicine; Visit Provider Internal Medicine
DX: E11.65 Type 2 diabetes mellitus with hyperglycemia (principal); E78.1 Pure hyperglyceridemia
CPT/HCPCS: 36415; 80053; 80061; 82044; 83036

== ENCOUNTER 2023-02-05 07:32 | Outpatient (CLI) | payer BC, SELFPAY ==
[2023-02-05 08:18] LABS: Albumin Level 4.3 g/dL (3.5-5.2); Alkaline Phosphatase 88 U/L (35-105); Aspartate Amino Transferase 29 U/L (0-32); Blood Urea Nitrogen 16 mg/dL (6-20); Calcium 9.2 mg/dL (8.5-10.5); Carbon Dioxide 22 mmol/L (22-29); Chloride 103 mmol/L (98-107); Cholesterol 148 mg/dL (0-200); Globulin 3.4 g/dL (1.3-4.6); LDL Cholesterol Calculated 73 mg/dL (50-129); LDL HDL Ratio 2.28 RATIO (0.00-3.22); Osmolality Calculated 293 mOsm/kg (285-295); Sodium 137 mmol/L (136-145); Total Bilirubin 0.7 mg/dL (0.15-1.2); Total Protein 7.7 g/dL (6.6-8.7)
[2023-02-05 08:28] LABS: Estmated Average Glucose 186; Hemoglobin A1C 8.1 % (4.0-6.0)
[2023-02-05 08:31] LABS: Creatinine Urine, Random 31 mg/dL (28-217); Microalbumin Random Urine 13 ug/dL (0-20)
[2023-02-05 08:38] LABS: Microalbum Creatinine Ratio Ur 419 mg/dL (0-20)
[2023-02-05 08:39] LABS: Alanine Aminotransferase 47 U/L (0-33); Glucose 231 mg/dL (65-115); Triglycerides 217 mg/dL (0-150)
[2023-02-05 08:40] LABS: Chol HDL Ratio 4.63 mg/dL (0.0-4.40); HDL Cholesterol 32 mg/dL (60-100)
[2023-02-05 08:46] LABS: Glomerular Filtration Rate 64.8 mL/min (90-130)
== END 2023-02-05 07:33 | disposition home or self-care (01) ==
LOC: LAB 07:33
PROVIDERS: PCP Family Medicine; Visit Provider Internal Medicine
DX: E11.65 Type 2 diabetes mellitus with hyperglycemia (principal)
CPT/HCPCS: 36415; 80053; 80061; 82044; 83036

== ENCOUNTER 2023-03-25 12:08 | Outpatient (CLI) | payer BC, SELFPAY ==
--- NOTE | 2023-03-25 12:15 | CT_ITS ---
WS: [id number] LDCT LUNG CANCER SCREENING HISTORY: screening TECHNIQUE: Axial imaging performed from the apices to 1 cm below the costophrenic angles. Coronal and sagittal reformats are submitted with axial MIP series. All CT scans at [facility] use at least one of these dose optimization techniques: automated exposure control; mA and/or kV adjustment per patient size (includes targeted exams where dose is matched to clinical indication); or iterativ e reconstruction. DLP: 66.42 mGy.cm DIvol: Mean CTDIvol: 1.50 (mGy) COMPARISON: None available. Diagnostic quality: Satisfactory Lungs: Noncalcified 4 mm nodule LEFT upper lobe, image 40 series 5. Noncalcified 5 mm nodule LEFT upp er lobe, image 50 series 5. No additional nodules or groundglass attenuation. No endobronchial lesion s. Heart: Normal size heart with no pericardial effusion.. Other findings: Mild atherosclerosis aorta. No adenopathy. No adrenal mass. CT/CT lung screening [id number] IMPRESSION: LUNG-RADS: 3-Probably Benign FOLLOW UP: 6 Month LDCT OTHER FINDINGS (S MODIFIER): None.
== END 2023-03-25 12:09 | disposition home or self-care (01) ==
PROVIDERS: PCP Family Medicine; Visit Provider Family Medicine
DX: Z12.2 Encounter for screening for malignant neoplasm of respiratory organs (principal); F17.219 Nicotine dependence, cigarettes, with unspecified nicotine-induced disorders
CPT/HCPCS: 71271

== ENCOUNTER 2023-05-13 07:37 | Outpatient (CLI) | payer BC, SELFPAY ==
[2023-05-13 08:19] LABS: Alanine Aminotransferase 91 U/L (0-33); Albumin Level 4.4 g/dL (3.5-5.2); Alkaline Phosphatase 80 U/L (35-105); Aspartate Amino Transferase 61 U/L (0-32); Blood Urea Nitrogen 22 mg/dL (6-20); Calcium 8.8 mg/dL (8.5-10.5); Carbon Dioxide 23 mmol/L (22-29); Chloride 102 mmol/L (98-107); Chol HDL Ratio 6.27 mg/dL (0.0-4.40); Cholesterol 207 mg/dL (0-200); Glomerular Filtration Rate 46.5 mL/min (90-130); Glucose 184 mg/dL (65-115); HDL Cholesterol 33 mg/dL (60-100); Total Protein 7.4 g/dL (6.6-8.7); Triglycerides 412 mg/dL (0-150)
[2023-05-13 08:23] LABS: Creatinine Urine, Random 185 mg/dL (28-217)
[2023-05-13 08:25] LABS: Potassium 3.9 mmol/L (3.5-5.1)
[2023-05-13 08:34] LABS: Estmated Average Glucose 200; Hemoglobin A1C 8.6 % (4.0-6.0)
[2023-05-13 08:39] LABS: Microalbum Creatinine Ratio Ur 270 mg/dL (0-20); Microalbumin Random Urine 50 ug/dL (0-20)
[2023-05-13 08:51] LABS: LDL Cholesterol Direct 125 mg/dL (0-100)
[2023-05-13 08:54] LABS: Anion Gap 15.9 (5-19); Osmolality Calculated 292 mOsm/kg (285-295); Sodium 137 mmol/L (136-145)
== END 2023-05-13 07:38 | disposition home or self-care (01) ==
PROVIDERS: PCP Family Medicine; Visit Provider Internal Medicine
DX: E11.65 Type 2 diabetes mellitus with hyperglycemia (principal); E11.40 Type 2 diabetes mellitus with diabetic neuropathy, unspecified; E11.22 Type 2 diabetes mellitus with diabetic chronic kidney disease; N18.30 Chronic kidney disease, stage 3 unspecified; E78.1 Pure hyperglyceridemia; Z87.19 Personal history of other diseases of the digestive system
CPT/HCPCS: 36415; 80053; 80061; 82044; 83036; 83721

== ENCOUNTER 2023-08-14 14:48 | Outpatient (CLI) | payer BC, SELFPAY ==
[2023-08-14 15:56] LABS: Alanine Aminotransferase 95 U/L (0-33); Albumin Level 4.5 g/dL (3.5-5.2); Alkaline Phosphatase 48 U/L (35-105); Aspartate Amino Transferase 58 U/L (0-32); Blood Urea Nitrogen 23 mg/dL (6-20); Calcium 9.1 mg/dL (8.5-10.5); Carbon Dioxide 23 mmol/L (22-29); Chloride 101 mmol/L (98-107); Chol HDL Ratio 5.39 mg/dL (0.0-4.40); Cholesterol 167 mg/dL (0-200); Globulin 3.1 g/dL (1.3-4.6); Glomerular Filtration Rate 31.1 mL/min (90-130); Glucose 229 mg/dL (65-115); HDL Cholesterol 31 mg/dL (60-100); Osmolality Calculated 297 mOsm/kg (285-295); Sodium 138 mmol/L (136-145); Total Bilirubin 0.4 mg/dL (0.15-1.2); Total Protein 7.6 g/dL (6.6-8.7); Triglycerides 535 mg/dL (0-150)
[2023-08-14 15:58] LABS: Creatinine Urine, Random 193 mg/dL (28-217)
[2023-08-14 16:06] LABS: Anion Gap 17.7 (5-19); Potassium 3.7 mmol/L (3.5-5.1)
[2023-08-14 16:19] LABS: Microalbum Creatinine Ratio Ur 259 mg/dL (0-20); Microalbumin Random Urine 50 ug/dL (0-20)
[2023-08-14 16:19] LABS: LDL Cholesterol Direct 93 mg/dL (0-100)
[2023-08-14 17:44] LABS: Estmated Average Glucose 186; Hemoglobin A1C 8.1 % (4.0-6.0)
== END 2023-08-14 14:49 | disposition home or self-care (01) ==
LOC: LAB 14:49
PROVIDERS: PCP Family Medicine; Visit Provider Internal Medicine
DX: E11.22 Type 2 diabetes mellitus with diabetic chronic kidney disease (principal); N18.30 Chronic kidney disease, stage 3 unspecified; E11.65 Type 2 diabetes mellitus with hyperglycemia; E78.1 Pure hyperglyceridemia; E11.40 Type 2 diabetes mellitus with diabetic neuropathy, unspecified; Z87.19 Personal history of other diseases of the digestive system
CPT/HCPCS: 36415; 80053; 80061; 82044; 83036; 83721

== ENCOUNTER → 2023-09-17 08:24 | Outpatient (BNVA) | payer BC, SELFPAY | PROVIDERS: PCP Family Medicine; Visit Provider Family Medicine | DX: F41.9 Anxiety disorder, unspecified (principal); F32.9 Major depressive disorder, single episode, unspecified; E11.65 Type 2 diabetes mellitus with hyperglycemia | CPT/HCPCS: 80048 ==

== ENCOUNTER 2023-09-21 07:24 | Outpatient (CLI) | payer BC, SELFPAY ==
--- NOTE | 2023-09-21 07:29 | MM_ITS ---
WS: [id number] SCREENING DIGITAL BREAST TOMOSYNTHESIS MAMMOGRAM WITH CAD HISTORY: screening COMPARISON: 07/01/2022 and 08/15/2020 Bilateral CC and MLO with tomosynthesis and synthetic mammography submitted. Computer aided detection analyzed. Breast composition: The breasts are heterogeneously dense, which may obscure small masses. Lobulated mass is noncalcified measuring 5 x 4 mm in the anterior RIGHT breast. Mass is just medial and inferio r to the nipple line. The LEFT breast is negative. IMPRESSION: MM/[place] [id number] BI-RADS: 0-Incomplete: Need additional imaging evaluation FOLLOW UP: Need Additional Imaging RIGHT breast: Spot compression views (CC and MLO). True ML. Ultrasound to follo w if abnormality persists.
== END 2023-09-21 07:25 | disposition home or self-care (01) ==
LOC: RAD 07:24
PROVIDERS: PCP Family Medicine; Visit Provider Family Medicine
DX: Z12.31 Encounter for screening mammogram for malignant neoplasm of breast (principal); N63.14 Unspecified lump in the right breast, lower inner quadrant
CPT/HCPCS: 77063; 77067

== ENCOUNTER 2023-09-23 15:53 | Outpatient (CLI) | payer BC, SELFPAY ==
--- NOTE | 2023-09-23 16:00 | CT_ITS ---
WS: [id number] CT chest wo con [id number] HISTORY: lung nodules TECHNIQUE: Axial imaging performed through the thorax. Coronal and sagittal reformats are submitted. All CT scans at [facility] use at least one of these dose optimization techniques: automated exposure control; mA and/or kV adjustment per patient size (includes targeted exams where dose is mat ched to clinical indication); or iterative reconstruction. CONTRAST: None DLP: 394.91 mGy.cm COMPARISON: 03/25/2023 Lungs and central airway: Mild pulmonary hyperexpansion. The noncalcified small nodules noted on the prior study and in the LEFT upper lobe have resolved. There are several new nodules. These have all r esolved and there is no residual. No dense consolidation or pneumonia. Pleura: Normal. No pleural effusion. Heart and pericardium: Normal size heart with no pericardial effusion. Mediastinum and gavino: No mediastinum or hilar adenopathy. Vessels: Mild atherosclerosis aorta. No aneurysm. Normal size pulmonary artery. Chest wall and lower neck: No soft tissue masses. Upper abdomen: No adrenal mass. Osseous structures: No destructive process. IMPRESSION: 1. Previously described LEFT upper lobe pulmonary nodules on 03/25/2023 have all resolved. No residual nodule and no new nodule. These are probably postinflammatory nodules. Return to annual lung screeni ng CT evaluations. 2. No adenopathy. 3. Mild atherosclerosis aorta.
== END 2023-09-23 15:54 | disposition home or self-care (01) ==
LOC: RAD 15:53
PROVIDERS: PCP Family Medicine; Visit Provider Family Medicine
DX: R91.8 Other nonspecific abnormal finding of lung field (principal); I70.0 Atherosclerosis of aorta
CPT/HCPCS: 71250

== ENCOUNTER 2023-10-13 14:47 | Outpatient (CLI) | payer BC, SELFPAY ==
--- NOTE | 2023-10-13 14:50 | MM_ITS ---
WS: [id number] ADDITIONAL VIEWS RIGHT MAMMOGRAM WITH DIGITAL BREAST TOMOSYNTHESIS. RIGHT BREAST ULTRASOUND HISTORY: abnormal mammogram COMPARISON: 09/21/2023, 07/01/2022 RIGHT MAMMOGRAM: Spot compression views and true ML with digital breast tomosynthesis and SM. Lobulated asymmetry in the medial RIGHT breast persists measuring 4.5 mm. This nodule is anterior but only seen on the CC projection. There is a slightly lobulated linear asymmetry which may be at duct extending towards the nipple which may correspond to this abnormality. Persists on additional imaging . RIGHT BREAST ULTRASOUND 2-D and color Doppler imaging submitted. Ultrasound directed to the medial RIGHT breast near 3-4 o'clock. There is no mass identified in the m edial RIGHT breast. There is a mildly prominent duct coursing towards the nipple at 3:00. It is sligh tly lobulated wall but there is no internal debris or nodule. This does correspond to the mammographi c abnormality. 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 There is a mildly promine nt duct but there is no internal debris or nodule identified.
== END 2023-10-13 14:48 | disposition home or self-care (01) ==
LOC: RAD 14:47
PROVIDERS: PCP Family Medicine; Visit Provider Family Medicine
DX: N60.41 Mammary duct ectasia of right breast (principal)
CPT/HCPCS: 76642; 77061; G0279

== ENCOUNTER → 2024-01-21 08:09 | Outpatient (BNVA) | payer BC, SELFPAY | PROVIDERS: PCP Family Medicine; Visit Provider Family Medicine | DX: E11.65 Type 2 diabetes mellitus with hyperglycemia (principal); I10 Essential (primary) hypertension; E78.1 Pure hyperglyceridemia; F41.9 Anxiety disorder, unspecified; F32.9 Major depressive disorder, single episode, unspecified; G47.10 Hypersomnia, unspecified | CPT/HCPCS: 80053; 80061; 83036; 83721 ==

== ENCOUNTER → 2024-02-10 09:37 | Outpatient (BNVA) | payer BC, SELFPAY | PROVIDERS: PCP Family Medicine; Visit Provider Nurse Practitioner Family | DX: R39.9 Unspecified symptoms and signs involving the genitourinary system (principal); R30.0 Dysuria; N30.01 Acute cystitis with hematuria | CPT/HCPCS: 81000; 87086 ==

== ENCOUNTER → 2024-08-01 08:07 | Outpatient (BNVA) | payer BC, SELFPAY | PROVIDERS: PCP Family Medicine; Visit Provider Family Medicine | DX: N18.31 Chronic kidney disease, stage 3a (principal); E11.65 Type 2 diabetes mellitus with hyperglycemia; E78.1 Pure hyperglyceridemia; F32.1 Major depressive disorder, single episode, moderate; F41.9 Anxiety disorder, unspecified; I10 Essential (primary) hypertension; E11.40 Type 2 diabetes mellitus with diabetic neuropathy, unspecified; G47.10 Hypersomnia, unspecified | CPT/HCPCS: 80053; 80061; 83036; 85025 ==

== ENCOUNTER → 2024-11-30 08:06 | Outpatient (BNVA) | payer BC, SELFPAY | PROVIDERS: PCP Family Medicine | DX: E11.65 Type 2 diabetes mellitus with hyperglycemia (principal) | CPT/HCPCS: 80053; 83036 ==